=== PATIENT | female | born 1975 | race Caucasian/White ===

== ENCOUNTER → 2019-12-18 13:27 | Outpatient (CLI) | payer OTHER, SELFPAY ==
--- NOTE | ~2019-12-18 | XR_ITS ---
EXAMINATION: XR hip RT 2V w AP pelvis, XR sacroiliac joints min 3V DATE: 12/18/2019 13:57 INDICATION: Right hip and low back pain. TECHNIQUE: 1. Anteroposterior view of the pelvis and anteroposterior and frog-leg lateral views of the right hip were obtained. 2. AP and left and right oblique views of the bilateral sacroiliac joints were obtained. COMPARISON: None. FINDINGS: Bone alignment is normal. No fracture. Sacral arches are intact. Bilateral hip and sacroiliac joint s paces are relatively preserved with tiny marginal osteophytes at the inferior aspect of the sacroilia c joints and along the femoral heads consistent with minimal osteoarthritis. There are a few small ph leboliths in the pelvis. Soft tissues are unremarkable. IMPRESSION: 1. Minimal bilateral hip and sacroiliac osteoarthritis. Reviewed, dictated and finalized at location B. IMPRESSION: 1. Minimal bilateral hip and sacroiliac osteoarthritis.
== END ==
PROVIDERS: PCP Internal Medicine; Visit Provider Internal Medicine
DX: M54.5 Low back pain (principal); R91.1 Solitary pulmonary nodule; M25.551 Pain in right hip; M16.0 Bilateral primary osteoarthritis of hip
CPT/HCPCS: 72202; 73502

== ENCOUNTER 2020-01-16 16:23 | Outpatient (CLI) | payer OTHER, SELFPAY ==
--- NOTE | ~2020-01-16 | CT_ITS ---
EXAMINATION: CT chest wo con DATE: 01/16/2020 16:45 INDICATION: Lung nodule TECHNIQUE: Computed tomography (CT) of the chest was performed without intravenous contrast. Automate d exposure control and iterative reconstruction technique were employed. Exam dose: 77.38 mGy-cm tot al exam DLP. COMPARISON: None FINDINGS: Status post bilateral augmentation mammoplasty. Minimal right apical scarring. 4 mm nodule, right lower lobe (series 4 image 59). Small posterolateral peripheral linear opacity, right lower lobe (image 59). Pleural-based 4 mm opacity in the lateral left lower lobe (image 77) Peripheral linear opacity in the lateral left lung base, likely a small area of discoid atelectasis o r scarring. No pulmonary infiltrate or consolidation. Normal heart size. No pericardial or pleural effusion. No thoracic aortic aneurysm. No hilar or mediastinal mass lesion or lymphadenopathy. No adrenal mass lesion. Status post cholecystectomy. IMPRESSION: 4 mm right lower lobe pulmonary nodule and 4 mm left lower lobe pulmonary nodule. Consid er [address] thorax follow-up Reviewed, dictated and finalized at Location A. Reviewed, dictated and finalized at location A. CHECKER IMPRESSION: 4 mm right lower lobe pulmonary nodule and 4 mm left lower lobe pu lmonary nodule. Consider [address] thorax follow-up
== END 2020-01-16 16:24 | disposition home or self-care (01) ==
PROVIDERS: PCP Internal Medicine; Visit Provider Internal Medicine
DX: R91.1 Solitary pulmonary nodule (principal)
CPT/HCPCS: 71250

== ENCOUNTER → 2021-02-06 15:21 | Outpatient (CLI) | payer OTHER, SELFPAY ==
--- NOTE | ~2021-02-06 | CT_ITS ---
EXAMINATION:CT diagnostic chest wo con DATE: 02/06/2021 15:44 INDICATION: Solitary pulmonary nodule. TECHNIQUE: Computed tomography (CT) of the chest was performed without intravenous contrast. Automate d exposure control and iterative reconstruction technique were employed. The dose-length product (DLP ) was 51.78 mGy-cm. COMPARISON: Chest CT 01/16/2020 FINDINGS: There is mild scarring at the lung apices. There are stable 4 mm and 2 mm nodules in right lower lobe. There is a stable 4 mm nodule in left lower lobe. There is mild dependent atelectasis karly aterally. No pleural effusion. There is is normal. No pericardial effusion. There is mild pectus exca vatum. There are bilateral breast implants. There are changes of cholecystectomy. There is severe tho racic spondylosis. There is mild chronic anterior wedging of multiple vertebral bodies. IMPRESSION: 1. Stable small pulmonary nodules, likely benign. Reviewed, dictated and finalized at location A. 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
== END ==
PROVIDERS: PCP Internal Medicine; Visit Provider Internal Medicine
DX: R91.1 Solitary pulmonary nodule (principal); M47.814 Spondylosis without myelopathy or radiculopathy, thoracic region; Q67.6 Pectus excavatum; Z98.82 Breast implant status
CPT/HCPCS: 71250

== ENCOUNTER 2022-07-26 15:29 | Outpatient (CLI) | payer OTHER, SELFPAY ==
--- NOTE | ~2022-07-26 | XR_ITS ---
XR hip RT 2V w AP pelvis 07/26/2022 15:49 INDICATION: Right lateral hip pain PROCEDURE: AP pelvis and 2 views right hip COMPARISON: 12/18/2019 FINDINGS: Fracture, dislocation or subluxation is not identified. Pelvic rings are intact. There is m ild bilateral osteoarthritis of the hips. The soft tissues appear within normal limits. No foreign b odies are identified. IMPRESSION: 1: Mild bilateral osteoarthritis of the hips. Reviewed, dictated and finalized at location L.
--- NOTE | ~2022-07-26 | CT_ITS ---
EXAMINATION: CT diagnostic chest wo con DATE: 07/26/2022 15:48 INDICATION: Follow-up pulmonary nodules TECHNIQUE: Computed tomography (CT) of the chest was performed without intravenous contrast. The dose -length product was 71.62 mGy-cm. Automated exposure control and iterative reconstruction technique w ere employed. COMPARISON: CT dated 02/06/2021 FINDINGS: There are bilateral breast implants. No significant pleural or pericardial effusion. No tho racic lymphadenopathy. Heart size is normal. Status post cholecystectomy. No endobronchial lesions. N o pneumothorax. There are stable 4 and 2 mm right lower lobe nodules, image 55. Stable 4 mm left lowe r lobe nodule, image 85. Stable 3 mm pleural-based nodule left lower lobe, image 69. Stable 3 mm left upper lobe nodule. No new pulmonary nodules or masses. Mild thoracic spondylosis. No focal lytic or blastic lesions. No acute osseous abnormality. Mildly accentuated thoracic kyphosis. IMPRESSION: 1. Stable small bilateral pulmonary nodules, likely benign. Reviewed, dictated and finalized at location L.
== END 2022-07-26 15:30 | disposition home or self-care (01) ==
PROVIDERS: PCP Internal Medicine; Visit Provider Internal Medicine
DX: R91.8 Other nonspecific abnormal finding of lung field (principal); M16.0 Bilateral primary osteoarthritis of hip
CPT/HCPCS: 71250; 73502

== ENCOUNTER 2022-12-20 08:19 | Outpatient (CLI) | payer OTHER, SELFPAY ==
--- NOTE | 2023-01-10 15:52 | WPDHOMESLEEP ---
Sleep Study - Home Unattended Date of Study: 12/20/22 Ordering Provider: Shelley Garibay NP Interpreting Provider: Gloria Carmona, DO Home Sleep Study Type: Watch PAT Height: 1.68 m Weight: 70.307 kg Body Mass Index: 25.0 Neck Circumference (inches): 13 [place]: 4 Reason for Sleep Study Insomnia, heart palpitations Sleep History The patient is a 47-year-old female that had a sleep study ordered by her primary care for evaluation of insomnia. The patient denies awakening from sleep short of breath. She rarely awakens at night with heartburn, belching or cough. She constantly snores loudly enough that others complain. She frequently has trouble sleeping when she has a cold. She rarely wakes up gasping for air throughout the night. She rarely has breathing problems at night observed by herself or others. She rarely sweats excessively at night. She frequently has heart palpitations or irregular heartbeats during the night. She denies falling asleep during the day and while driving. She denies sleep paralysis and cataplexy. She occasionally has trouble at school or work due to sleepiness. She occasionally experiences vivid dreamlike scenes upon awakening or falling asleep. She denies feeling afraid of falling asleep. She constantly has nightmares. She constantly remembers her dreams. She constantly has thoughts racing through her mind. She constantly feels sad, depressed and anxious. She frequently has muscular tension. She frequently notices parts of her body jerk. She frequently kicks during the night. She frequently has crawling and aching feelings in her legs and frequently has leg pain during the night. She frequently grinds her teeth during sleep and frequently awakens with morning jaw pain. She is constantly bothered by pain during the day and constantly awakened by pain during the night. She constantly wakes up feeling stiff in the morning. She constantly wakes up with sore or achy muscles. She constantly wakes up with pain in the neck, spine or other joints. She goes to bed between 10-11 p.m. on weekdays and between 10:00 p.m. to 1:00 a.m. on the weekends. It can take her up to 4 hours to fall asleep on bad nights. She wakes up 4-6 times throughout the night for unknown reasons. A can take her 15 minutes up to 2 hours to fall back asleep. She wakes up between 6-7 a.m. on both weekdays and weekends. He typically gets 7-8 hours of sleep if she takes Ambien and will only get 3-4 hours of sleep if she does not. She will stay in bed for 10-15 minutes after waking up in the morning. She denies consuming any caffeinated beverages within 2 hours of bedtime. She will engage in physical exercise before bedtime. She will watch television before falling asleep. She denies taking naps in the afternoon or the evening. She consumes 3-4 cups of coffee per day. She quit smoking cigarettes 3 months ago. She denies alcohol and recreational drug PMFSH Past Medical History Medical History Abnormal finding of blood chemistry Abnormal thyroid blood test Anxiety Benign essential hypertension Bilateral hip pain BMI 23.0-23.9, adult BMI 25.0-25.9,adult BMI 27.0-27.9,adult Breast pain, right Bruising Chronic pain Depressed mood Depression DJD (degenerative joint disease) Dyslipidemia Elevated glucose Elevated homocysteine Elevated LFTs Encounter for preventive health examination Encounter for routine adult health examination with abnormal findings Encounter for routine adult health examination without abnormal findings Encounter to establish care Follow up GERD (gastroesophageal reflux disease) Hip pain, right Hypersomnia Hypertension Increased frequency of urination Insomnia Jaw pain Left sciatic nerve pain Low back pain Lung nodule Lupus Mass of soft tissue of right lower extremity Migraine with aura Migraines Mitral valve disorder Nausea and vomiting O
[2023-01-10 16:14] VITALS: BMI 25.0
== END 2022-12-21 09:59 | disposition home or self-care (01) ==
LOC: ANHCSM 08:21
PROVIDERS: PCP Nurse Practitioner Family; Visit Provider Nurse Practitioner Family
DX: G47.39 Other sleep apnea (principal); G25.81 Restless legs syndrome; G47.00 Insomnia, unspecified; R06.83 Snoring; G47.10 Hypersomnia, unspecified
CPT/HCPCS: 95800

== ENCOUNTER 2022-12-20 10:23 | Outpatient (CLI) | payer OTHER, SELFPAY ==
--- NOTE | 2022-12-20 10:52 | ECHO_ITS ---
Patient Info Name: Misty Monroe Age: 47 years : 1975 Gender: Female Ht: 65 in Wt: 155 lbs BSA: 1.81 m2 HR: 62 bpm BP: 125 / 84 mmHg Heart Rhythm: Sinus Rhythm Technical Quality: Good Exam Date: 12/20/2022 11:12 AM Exam Location: [facility] Patient Status: Outpatient Admit Date: 12/20/2022 Staff Ordering Physician: Shelley Garibay NP Class A Lineman: Sri Padilla RDCS Attending Provider: Shelley Garibay NP Exam Type: CA echo doppler color flow Study Info Indications R06.02 - Shortness of breath Complete two-dimensional, color flow and Doppler transthoracic echocardiogram is performed. Summary 1. Complete two-dimensional, color flow and Doppler transthoracic echocardiogram is performed. 2. Left ventricular chamber dimension is normal. 3. Left ventricular systolic function is normal, estimated at 60-65%. 4. The left ventricular diastolic function is grade II diastolic dysfunction. 5. E/e' 7 is not elevated. 6. No pulmonary hypertension, estimated pulmonary arterial systolic pressure is 15 mmHg. 7. There is trace pulmonic regurgitation. Left Ventricle E/e' 7 is not elevated. Left ventricular chamber dimension is normal. Left ventricular systolic function is normal, estimated at 60-65%. The left ventricular diastolic function is grade II diastolic dysfunction. Right Ventricle Right ventricular systolic function is normal and with normal TAPSE 2.2 cm. Right ventricular chamber dimension is normal. Left Atria Left atrial chamber dimension is normal. Right Atria Right atrial chamber dimension is normal. Aortic Valve The aortic valve is trileaflet. There is no aortic valve stenosis. There is no aortic valve regurgitation. Pulmonic Valve There is trace pulmonic regurgitation. Mitral Valve There is no mitral valve stenosis. There is no mitral valve regurgitation. Tricuspid Valve There is no tricuspid valve regurgitation. No pulmonary hypertension, estimated pulmonary arterial systolic pressure is 15 mmHg. Pericardium/Pleural There is no pericardial effusion. Inferior Vena Cava Normal inferior vena cava with >50% collapse upon inspiration consistent with normal right atrial pressure, 5 mmHg. Aorta The aortic root size at the sinus of Valsalva is normal. Left Ventricular Outflow Tract Name Value Normal LVOT 2D LVOT Diameter 2.0 cm LVOT Doppler LVOT Peak Gradient 4 mmHg LVOT Mean Gradient 2 mmHg LVOT VTI 20 cm LVOT VTI/AV VTI Ratio 0.9 LVOT Stroke Volume 60 ml LVOT CO 3.6 l/min LVOT CI 2.0 l/min/m2 Pulmonic Valve Name Value Normal RVOT Doppler RVOT Peak Gradient 1 mmHg PV Doppler PV Peak Gradient
--- NOTE | 2022-12-20 10:53 | ECG_ITS ---
Measurements Intervals [place] Rate: 60 P: 56 TN: 191 QRS: -9 QRSD: 94 T: 0 QT: 395 QTc: 395 Interpretive Statements SINUS RHYTHM LOW QRS VOLTAGE IN PRECORDIAL LEADS [QRS DEFLECTION < 1.0 mV IN CHEST LEADS] INCOMPLETE RIGHT BUNDLE BRANCH BLOCK [90+ ms QRS DURATION, TERMINAL R IN V1/V2, 40+ ms S IN I/aVL/V4/V5/V6] BORDERLINE ECG NO PREVIOUS ECG AVAILABLE FOR COMPARISON Electronically Signed On 12-20-2022 17:04:01 CDT by Gordon Lyon M.D.
== END 2022-12-20 10:24 | disposition home or self-care (01) ==
LOC: ANHCARD 10:23
PROVIDERS: PCP Nurse Practitioner Family; Visit Provider Nurse Practitioner Family
DX: R00.2 Palpitations (principal); I45.10 Unspecified right bundle-branch block; R93.1 Abnormal findings on diagnostic imaging of heart and coronary circulation
CPT/HCPCS: 93005; 93306; 95800

== ENCOUNTER 2023-01-10 09:59 | Outpatient (CLI) | payer OTHER, SELFPAY ==
--- NOTE | 2023-01-13 12:09 | WPDHOLTEREM ---
Holter/Event Monitor Holter/Event Monitor Date of procedure: 01/10/23 Holter/Event Procedure: 24 Hr Holter Monitor Indications: Palpitations Conclusion: 1. 24 hour holter monitor on 01/10/23. 2. Underlying rhythm is sinus rhythm. HR range 58-113 bpm; average HR 76 bpm. 3. There are 2 premature supraventricular complexes and 1 supraventricular couplet. No supraventricular tachycardia. 4. No premature ventricular complexes. No ventricular tachycardia. 5. No sinoatrial or atrioventricular blocks. No significant pauses greater than 2 seconds. 6. Patient reports symptoms of pounding heart, lightheadedness which demonstrate sinus rhythm, HR range 81-92 bpm.
== END 2023-01-10 10:00 | disposition home or self-care (01) ==
LOC: ANHCARD 10:01
PROVIDERS: PCP Nurse Practitioner Family; Visit Provider Nurse Practitioner Family
DX: R06.02 Shortness of breath (principal); R00.2 Palpitations
CPT/HCPCS: 93225; 93226

== ENCOUNTER 2023-06-07 07:24 | Outpatient (CLI) | payer OTHER, SELFPAY ==
[2023-06-14 17:52] VITALS: BMI 25.8
--- NOTE | 2023-06-14 17:52 | WPDSLEEPSTUD ---
Sleep Study Date of Study: 06/07/23 Ordering Provider: Gloria Carmona DO Interpreting Physician: Gloria Carmona DO Sleep Study Type: CPAP Titration Height: 1.68 m Weight: 72.575 kg Body Mass Index: 25.8 Neck Circumference (inches): 13.25 [place]: 6 Reason for Sleep Study The patient had a WatchPAT home sleep test on 12/20/2022 that showed an overall AHI of 7 with desaturation down to 83%. She had a central apnea index of 4.7. Sleep History The patient is a 47-year-old female that had a sleep study ordered by her primary care for evaluation of insomnia.? The patient denies awakening from sleep short of breath.? She rarely awakens at night with heartburn, belching or cough.? She constantly snores loudly enough that others complain.? She frequently has trouble sleeping when she has a cold.? She rarely wakes up gasping for air throughout the night.? She rarely has breathing problems at night observed by herself or others.? She rarely sweats excessively at night.? She frequently has heart palpitations or irregular heartbeats during the night.? She denies falling asleep during the day and while driving.? She denies sleep paralysis and cataplexy.? She occasionally has trouble at school or work due to sleepiness.? She occasionally experiences vivid dreamlike scenes upon awakening or falling asleep.? She denies feeling afraid of falling asleep.? She constantly has nightmares.? She constantly remembers her dreams.??She constantly has thoughts racing through her mind.? She constantly feels sad, depressed and anxious.? She frequently has muscular tension.? She frequently notices parts of her body jerk.? She frequently kicks during the night.? She frequently has crawling and aching feelings in her legs and frequently has leg pain during the night.? She frequently grinds her teeth during sleep and frequently awakens with morning jaw pain.? She is constantly bothered by pain during the day and constantly awakened by pain during the night.? She constantly wakes up feeling stiff in the morning.? She constantly wakes up with sore or achy muscles.? She constantly wakes up with pain in the neck, spine or other joints.? She goes to bed between 10-11 p.m. on weekdays and between 10:00 p.m. to 1:00 a.m. on the weekends.? It can take her up to 4 hours to fall asleep on bad nights.? She wakes up 4-6 times throughout the night for unknown reasons.? A can take her 15 minutes up to 2 hours to fall back asleep.? She wakes up between 6-7 a.m. on both weekdays and weekends.? He typically gets 7-8 hours of sleep if she takes Ambien and will only get 3-4 hours of sleep if she does not.? She will stay in bed for 10-15 minutes after waking up in the morning.? She denies consuming any caffeinated beverages within 2 hours of bedtime.? She will engage in physical exercise before bedtime.? She will watch television before falling asleep.? She denies taking naps in the afternoon or the evening.? She consumes 3-4 cups of coffee per day.? She quit smoking cigarettes 3 months ago.? She denies alcohol and recreational drug use. [facility] Past Medical History Medical History Abnormal finding of blood chemistry Abnormal thyroid blood test Acute sinusitis Anemia Anxiety Benign essential hypertension Bilateral hip pain BMI 23.0-23.9, adult BMI 25.0-25.9,adult BMI 26.0-26.9,adult BMI 27.0-27.9,adult Breast pain, right Bruising Chronic pain Depressed mood Depression DJD (degenerative joint disease) Dyslipidemia Elevated glucose Elevated homocysteine Elevated LFTs Encounter for preventive health examination Encounter for routine adult health examination with abnormal findings Encounter for routine adult health examination without abnormal findings Encounter to establish care Follow up GERD (gastroesophageal reflux disease) Hip pain, right Hypersomnia Hypertension Increased frequency of urination Insomnia Jaw pain Left sciatic
== END 2023-06-08 07:11 | disposition home or self-care (01) ==
PROVIDERS: PCP Nurse Practitioner Family; Visit Provider Family Medicine
DX: G47.31 Primary central sleep apnea (principal); F39 Unspecified mood [affective] disorder
CPT/HCPCS: 95811

== ENCOUNTER 2023-08-15 13:04 | Outpatient (CLI) | payer OTHER, SELFPAY ==
--- NOTE | ~2023-08-15 | XR_ITS ---
EXAMINATION: XR fl inj hip RT for MR/CT DATE: 08/15/2023 14:01 INDICATION: Right hip pain TECHNIQUE: A time-out was performed to verify the patient's name, date of , and procedure to b e performed. The procedure including the risks, benefits, and alternatives was discussed with the pat ient. Risks discussed included bleeding and infection. The patient understood the risks and agreed to proceed. The skin overlying the right hip joint was prepped and draped in usual sterile fashion. A nesthetic was administered with 1% lidocaine subcutaneously. A 22 G needle was advanced under fluoro scopic guidance into the joint. Injection of 1 mL of Omnipaque 240 confirmed intra-articular positio n of the needle. Subsequently, injectate consisting of 12 mL of 2:1:1 mixture of sterile saline:Omni paque 240:1% lidocaine mixed 200:1 with 529 mg/mL Multihance gadolinium contrast was instilled. Wash out of contrast was seen confirming intra-articular administration. The needle was removed and the en try site was cleaned and dressed. There were no immediate complications. Fluoroscopy exposure time w as 0.3 minutes. The total number of images was 6. FINDINGS: Real-time fluoroscopy demonstrates the needle and contrast in the right hip joint. IMPRESSION: 1. Successful right hip joint injection of dilute gadolinium contrast mixture for subsequent MRI arth rogram which will be dictated separately. Reviewed, dictated and finalized at location A. IMPRESSION: 1. Successful right hip joint injection of dilute gadolinium contrast mixture f or subsequent MRI arthrogram which will be dictated separately.
--- NOTE | ~2023-08-15 | MR_ITS ---
EXAMINATION: MR hip RT w con DATE: 08/15/2023 14:37 INDICATION: Right hip pain TECHNIQUE: Magnetic resonance (MR) arthrogram of the right hip was performed following intra-articula r gadolinium contrast injection and without intravenous contrast. Details of the hip joint injection have been dictated separately. Sequences included small field of view of the right hip with axial and sagittal T1-weighted FS SE and T2-weighted FS FSE and coronal T1-weighted SE and T2-weighted FS FSE . Additional T1-weighted FGRE images in a radial pattern oriented orthogonal to the acetabular rim we re obtained for evaluation of the labrum. COMPARISON: None. FINDINGS: Bones/labrum/cartilage: Mild thoracolumbar levocurvature. Alignment is otherwise normal. No fracture or avascular necrosis. Slightly heterogeneous pattern of red and yellow marrow in the visualized bones. No pathologic marrow replacing process. Shallow contrast filled cleft consistent with their at the right superolateral ch ondral labral junction . There is more amorphous increased signal at the anterosuperior right acetabu lar labrum consistent with degenerative tearing. Mild to moderate nonuniform partial-thickness carti arabella loss at the right hip most prominent posteriorly where it involves both the acetabular and femor al sides of the joint space with relatively smooth chondral surface. There is additional deep chondra l ulceration along the posterior superomedial aspect of the femoral head with associated mild cortica l irregularity. Mild subarticular cystic change at the posterior medial aspect of the right acetabulu m. Less severe mild osteoarthritis suggested at the contralateral left hip on the larger [id number] w images. Fluid: No loose osteochondral bodies identified in the contrast opacified right hip joint space. Minimal lef t hip joint effusion. No bursitis or other abnormal fluid collections. Soft tissues: Normal and symmetric muscle bulk and signal in the pelvis and visualized proximal thighs. The bilater al iliopsoas, gluteal and proximal hamstring tendons are normal. The uterus is not identified and has likely been surgically resected. A segment of nonobstructed bowel extends into a small widemouthed u mbilical hernia. Limited evaluation of visceral organs of the pelvis is otherwise unremarkable. No pa thologically enlarged pelvic/inguinal lymphadenopathy. IMPRESSION: 1. Mild to moderate left hip osteoarthritis with small regions of high-grade chondromalacia at both t he femoral head and acetabulum at the posterior superomedial aspect of the joint space. 2. 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 Reviewed, dictated and finalized at location A. IMPRESSION: 1. Mild to moderate left hip osteoarthritis with small regions of high-grade ch ondromalacia at both the femoral head and acetabulum at the posterior superomed ial aspect of the joint space. 2. 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
== END 2023-08-15 13:05 ==
PROVIDERS: PCP Nurse Practitioner Family; Visit Provider Orthopaedic Surgery
DX: M25.551 Pain in right hip (principal); M16.12 Unilateral primary osteoarthritis, left hip
CPT/HCPCS: 20610; 73722; 77002; A9577; Q9967

== ENCOUNTER 2024-01-13 00:53 | Day surgery (SDC) | payer OTHER, SELFPAY ==
[2024-01-04 13:40] VITALS: BMI 27.6
--- NOTE | 2024-01-13 13:14 | P.PNAN_ITS ---
Anes - Initial Pre Proc Eval Procedure: Operation Date: 01/13/24 14:30 Proposed Procedures p Colonoscopy - Mahin Kurtz MD Date/Time: 01/13/24 13:14 Surgeon: Mahin Kurtz MD Pre Op Diagnosis: other fecal abnormalities Patient Data Age: 48 Gender: F Height: 1.68 m Weight: 77.5 kg Allergies Allergy/AdvReac Type Severity Reaction Status Date / Time No Known Allergies Allergy Verified 01/13/24 13:17 Home Medications Medication Instructions Recorded Confirmed Type glucosamine-chondroitin 250 mg-200 2 tablet PO TID 04/29/20 01/13/24 History mg tablet (Osteo Bi-Flex) xhijskwg-apc-corlm acid 0.4 1 tablet PO DAILY 04/29/20 01/13/24 History mg-lycopene 300 mcg-lutein 250 mcg tablet (Centrum Silver) adalimumab 40 mg/0.8 mL See Rx Instructions subcut .COMPLEX 11/23/22 01/13/24 History subcutaneous syringe kit (Humira) oxycodone-acetaminophen 7.5 mg-325 1 tablet PO Q6H PRN Pain 11/23/22 01/13/24 History mg tablet lisinopril 10 mg tablet See Rx Instructions .Route 02/22/23 01/13/24 Rx .COMPLEX #90 tabs bupropion HCl 300 mg 24 hr tablet, 300 mg PO QAM #30 tabs 04/01/23 01/13/24 Rx extended release rizatriptan 10 mg tablet See Rx Instructions PO .COMPLEX 05/17/23 01/13/24 Rx #12 tabs CPAP Equipment #1 ea 06/15/23 01/13/24 Rx alprazolam 0.25 mg tablet 0.125 - 0.25 mg PO TID PRN anxiety 11/03/23 01/13/24 Rx #90 tabs montelukast 10 mg tablet 10 mg PO QHS #30 tabs 11/21/23 01/13/24 Rx (Singulair) escitalopram oxalate 10 mg tablet 10 mg PO DAILY #30 tabs 11/28/23 01/13/24 Rx (Lexapro) CPAP Mask #1 ea 12/07/23 01/13/24 Rx pramipexole 0.125 mg tablet 0.125 mg PO .COMPLEX #120 tabs 12/07/23 01/13/24 Rx metoprolol succinate 50 mg See Rx Instructions .Route 12/21/23 01/13/24 Rx tablet,extended release 24 hr .COMPLEX #90 tabs zolpidem 12.5 mg tablet,extended 12.5 mg PO QHS PRN insomnia #30 12/23/23 01/13/24 Rx release,multiphase tabs Patient hx anesthesia problems: none Family hx anesthesia problems: none Results Review: All pre-operative results and documents have been reviewed as part of the pre- operative evaluation. [facility] Past Medical History Medical History (Updated 12/16/23 @ 14:36 by Joe Escobar MD) Abnormal finding of blood chemistry Abnormal thyroid blood test Acute sinusitis Anemia Anxiety Benign essential hypertension Bilateral hip pain BMI 23.0-23.9, adult BMI 25.0-25.9,adult BMI 26.0-26.9,adult BMI 27.0-27.9,adult Breast pain, right Bruising Chronic pain Depressed mood Depression DJD (degenerative joint disease) Dyslipidemia Elevated glucose Elevated homocysteine Elevated LFTs Encounter for preventive health examination Encounter for routine adult health examination with abnormal findings Encounter for routine adult health examination without abnormal findings Encounter to establish care Follow up GERD (gastroesophageal reflux disease) Hip pain, right Hypersomnia Hypertension Increased frequency of urination Insomnia Jaw pain Left sciatic nerve pain Low back pain Lump of right breast Lung nodule Lupus Mass of soft tissue of right lower extremity Migraine with aura Migraines Mitral valve disorder Nausea and vomiting 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 Referral for colonoscopy. Seasonal allergies Shortness of breath with episodes of palpitations Snoring Tobacco abuse Vitamin D deficiency Surgical History Surgical History S/P cholecystectomy S/p nephrectomy Family History Family History Mother Family history of lupus erythematosus Social History Social History Smoking packs per day: 0.25 Smoking cigarettes per day: 5.0 Years smoked: 25 Smoking pack-years: 6.25 Smoking status: Former smoker Tobacco type: cigarettes and e-cigarettes/vaping Second hand tobacco smoke exposure: Yes Alcohol intake: current Alcohol use details: Socially Substance use: never Substance use type: does not use Do You Feel Safe in your Home?: Yes Lack of Transportation: No Lack of Food: Never True Current Housing: I Have Housing Concerned About Future Housing: No Difficulty Paying Gas/Electric Bills: No Difficulty Paying for Meds: No Currently Unemployed: No Education: Trade/Vocational Certificate Difficulty w/ Childcare or Family Care: No Living arrangements: with family Additional living arrangements comments: with sp Occupation/Education: occupation Gender identity (if verbalized by the patient): Female Anes - Mica Final PreProcedure Day of Procedure 01/13/24 13:14 Patient weight: overweight Heart: regular rate and rhythm Lungs: clear to auscultation Airway: Mallampati scale class II Neurological: alert and oriented Last oral intake: >/= 8 hours ASA classification: III Emergent: no Anesthetic plan: proceed Anesthesia type and monitoring: general GIVS and standard monitoring Results Review: All pre-operative results and documents have been reviewed as part of the pre- operative evaluation. Informed Consent: The patient's anesthetic plan and its attendant risks and benefits were discussed with the patient/family/POA. Questions were solicited and answers provided to the satisfaction of the patient/family/POA.
[2024-01-13 13:19] VITALS: BP 114/78; PULSE 87; RESP 18; TEMP 36.1; O2SAT 96
[2024-01-13] MEDS: LACTATED RINGERS 1,000 ML 150 ML IV CONT (13:29)
--- NOTE | 2024-01-13 13:54 | PM.HPGS ---
History of Present Illness History of Present Illness Consent: Risks, benefits, and alternatives have been discussed and questions answered. Patient agrees to proceed with procedure. Chief complaint: other fecal abnormalities Narrative: Misty Monroe is a 48 year old female here for + cologuard, last colonoscopy 2011 Review of Systems Review of Systems: All systems reviewed & are unremarkable except as noted in HPI and below PMFSH Past Medical History Medical History (Updated 12/16/23 @ 14:36 by Joe Escobar MD) Abnormal finding of blood chemistry Abnormal thyroid blood test Acute sinusitis Anemia Anxiety Benign essential hypertension Bilateral hip pain BMI 23.0-23.9, adult BMI 25.0-25.9,adult BMI 26.0-26.9,adult BMI 27.0-27.9,adult Breast pain, right Bruising Chronic pain Depressed mood Depression DJD (degenerative joint disease) Dyslipidemia Elevated glucose Elevated homocysteine Elevated LFTs Encounter for preventive health examination Encounter for routine adult health examination with abnormal findings Encounter for routine adult health examination without abnormal findings Encounter to establish care Follow up GERD (gastroesophageal reflux disease) Hip pain, right Hypersomnia Hypertension Increased frequency of urination Insomnia Jaw pain Left sciatic nerve pain Low back pain Lump of right breast Lung nodule Lupus Mass of soft tissue of right lower extremity Migraine with aura Migraines Mitral valve disorder Nausea and vomiting 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 Referral for colonoscopy. Seasonal allergies Shortness of breath with episodes of palpitations Snoring Tobacco abuse Vitamin D deficiency Surgical History Surgical History S/P cholecystectomy S/p nephrectomy Family History Family History Mother Family history of lupus erythematosus Social History Social History Smoking packs per day: 0.25 Smoking cigarettes per day: 5.0 Years smoked: 25 Smoking pack-years: 6.25 Smoking status: Former smoker Tobacco type: cigarettes and e-cigarettes/vaping Second hand tobacco smoke exposure: Yes Alcohol intake: current Alcohol use details: Socially Substance use: never Substance use type: does not use Do You Feel Safe in your Home?: Yes Lack of Transportation: No Lack of Food: Never True Current Housing: I Have Housing Concerned About Future Housing: No Difficulty Paying Gas/Electric Bills: No Difficulty Paying for Meds: No Currently Unemployed: No Education: Trade/Vocational Certificate Difficulty w/ Childcare or Family Care: No Living arrangements: with family Additional living arrangements comments: with sp Occupation/Education: occupation Gender identity (if verbalized by the patient): Female Meds Home Medications and Allergies Home Medications Medication Instructions Recorded Confirmed Type glucosamine-chondroitin 250 mg-200 2 tablet PO TID 04/29/20 01/13/24 History mg tablet (Osteo Bi-Flex) bdttdbev-mjp-ojczx acid 0.4 1 tablet PO DAILY 04/29/20 01/13/24 History mg-lycopene 300 mcg-lutein 250 mcg tablet (Centrum Silver) adalimumab 40 mg/0.8 mL See Rx Instructions subcut .COMPLEX 11/23/22 01/13/24 History subcutaneous syringe kit (Humira) oxycodone-acetaminophen 7.5 mg-325 1 tablet PO Q6H PRN Pain 11/23/22 01/13/24 History mg tablet lisinopril 10 mg tablet See Rx Instructions .Route 02/22/23 01/13/24 Rx .COMPLEX #90 tabs bupropion HCl 300 mg 24 hr tablet, 300 mg PO QAM #30 tabs 04/01/23 01/13/24 Rx extended release rizatriptan 10 mg tablet See Rx Instructions PO .COMPLEX 05/17/23 01/13/24 Rx #12 tabs CPAP Equipment #1 ea 06/15/23 01/13/24 Rx alprazolam 0.25 mg tablet 0.125 - 0.25 mg PO TID PRN anxiety 11/03/23 01/13/24 Rx #90 tabs montelukast 10 mg tablet 10 mg PO QHS #30 tabs 11/21/23 01/13/24 Rx (Singulair) escitalopram oxalate 10 mg tablet 10 mg PO DAILY #30 tabs 11/28/23 01/13/24 Rx (Lexapro) CPAP Mask #1 ea 12/07/23 01/13/24 Rx pramipexole 0.125 mg tablet 0.125 mg PO .COMPLEX #120 tabs 12/07/23 01/13/24 Rx metoprolol succinate 50 mg See Rx Instructions .Route 12/21/23 01/13/24 Rx tablet,extended release 24 hr .COMPLEX #90 tabs zolpidem 12.5 mg tablet,extended 12.5 mg PO QHS PRN insomnia #30 12/23/23 01/13/24 Rx release,multiphase tabs Allergies Allergy/AdvReac Type Severity Reaction Status Date / Time No Known Allergies Allergy Verified 01/13/24 13:17 Vital Signs Vital Signs - 24 hr 01/13/24 13:19 Temperature 97.0 F L Pulse Rate 87 Respiratory Rate 18 Blood Pressure 114/78 Pulse Oximetry 96 Oxygen Delivery Room Air Exam Const: General: comfortable and no acute distress HENMT: Face/Nose/Sinus: Normal nares present Eyes: General: appearance normal, both eyes and all related structures Neck: Neck: no JVD Resp: Auscultation: clear to auscultation bilaterally Cardio: Rate: regular rate Rhythm: regular rhythm GI: Inspection: non-distended GI Palp: Yes Soft to palpation Skin: General skin exam: normal color Neuro: General: gait normal Speech: normal speech Extrem: General: normal to inspection Psych: Mental Status: mental status grossly normal Assessment and Plan Assessment and plan (1) Positive colorectal cancer screening using Cologuard test: Onset Date: 12/09/23 Code(s): R19.5 - Other fecal abnormalities Status: Acute Assessment and Plan: colonoscopy
[2024-01-13 14:18] VITALS: BP 93/58; PULSE 79; RESP 22; O2SAT 100
[2024-01-13 14:28] VITALS: BP 98/65; PULSE 81; RESP 25; O2SAT 100
[2024-01-13 14:38] VITALS: BP 106/73; PULSE 67; RESP 19; O2SAT 100
== END 2024-01-13 14:54 | disposition home or self-care (01) ==
PROVIDERS: PCP Nurse Practitioner Family; Referring Provider Family Medicine; Visit Provider Internal Medicine Gastroenterology
PROC: 0DJD8ZZ Inspection of Lower Intestinal Tract, Via Natural or Artificial Opening Endoscopic (ICD-10-PCS; CPT 45378; principal; 2024-01-13 14:30)
DX: R19.5 Other fecal abnormalities (principal); K64.8 Other hemorrhoids; I10 Essential (primary) hypertension; E78.5 Hyperlipidemia, unspecified; F41.9 Anxiety disorder, unspecified; F32.A Depression, unspecified; K21.9 Gastro-esophageal reflux disease without esophagitis; Z87.891 Personal history of nicotine dependence; Z79.620 Long term (current) use of immunosuppressive biologic
CPT/HCPCS: 45378; J2704; J7120

== ENCOUNTER 2024-05-23 16:17 | Outpatient (CLI) | payer OTHER, SELFPAY ==
--- NOTE | ~2024-05-23 | XR_ITS ---
HISTORY: radiculopathy COMPARISON: None TECHNIQUE: 3 views of the thoracic spine were performed FINDINGS: No acute compression fracture is present. Bone mineralization is age-appropriate. No significant degenerative disease. IMPRESSION: Unremarkable radiographic evaluation of the thoracic spine, as detailed above. Reviewed, dictated and finalized at location A.
--- NOTE | ~2024-05-23 | XR_ITS ---
HISTORY: radiculopathy COMPARISON: None. TECHNIQUE: 2 view lumbar spine. FINDINGS: Lumbar vertebral bodies are normally aligned. There are 5 non-rib bearing lumbar vertebral bodies. There are no lytic or sclerotic lesions. Paraspinal soft tissues are unremarkable. Degenerative disease is identified at the level of T11/T12 and T12/L1 with osteophyte formation and d isc space narrowing. Remaining disc spaces and vertebral body heights are otherwise well maintained within the lumbar spin e. IMPRESSION: Degenerative disease, without acute fracture. If patient is clinically able, follow-up with a noncontrast enhanced MRI is recommended for more deta iled evaluation. Reviewed, dictated and finalized at location A. IMPRESSION: Degenerative disease, without acute fracture. If patient is clinically able, follow-up with a noncontrast enhanced MRI is rec ommended for more detailed evaluation.
--- OUTSIDE RECORDS SUMMARY | 2024-05-23 17:15 | XMS_ITS | Clinical Summary ---
Author Organization [facility] Address [address] [place] [address] Care Team Providers Care Weather Analyst Name Role Phone Shelley Garibay NP Primary Care Provider [phone] Allergies No known active allergies Medications lisinopril (PRINIVIL,ZESTRI L) 10 mg tablet Take 1 tablet (10 mg total) by mouth daily Active metoprolol XL (TOPROL-XL) 50 mg 24 hr tablet Take 1 tablet (50 mg total) by mouth daily Active estradiol (ESTRACE) 2 mg tablet Take 1 tablet (2 mg total) by mouth daily Active multivitamin tabletIndication s:Vitamin Deficiency Prevention Take 1 tablet by mouth daily. Active cyanocobalamin (Vitamin B-12) 1,000 mcg tabletIndication s:Prevention of Vitamin B12 Deficiency Take 1 tablet (1,000 mcg total) by mouth daily Active oxyCODONE-acetam inophen (PERCOCET) 7.5-325 mg per tabletIndication s:Pain Take 1 tablet by mouth every 4 (four) hours as needed Active folic acid (FOLVITE) 1 mg tablet Take 1 mg by mouth daily Active escitalopram (LEXAPRO) 10 mg tablet Take 1 tablet (10 mg total) by mouth daily 05/20/2023 Active buPROPion XL (WELLBUTRIN XL) 300 mg 24 hr tablet 06/12/2023 Active ALPRAZolam (XANAX) 0.25 mg tablet Take 1 tablet (0.25 mg total) by mouth daily as needed 04/17/2021 Active lidocaine (LIDODERM) 5 % 05/11/2023 Acti ve rizatriptan (MAXALT) 10 mg tablet 05/17/2023 Active Humira,CF, Pen 40 mg/0.4 mL pen injector kit 06/08/2023 Active zolpidem CR (AMBIEN CR) 12.5 mg CR tablet 07/06/2023 Active Active Problems Problem Noted Date Diagnosed Date Tobacco abuse 01/02/2018 Depression 01/02/2018 Hypertension 11/08/2012 Mitral valve prolapse 05/13/2006 Overview (06/11/2016): MVP Resolved Problems Problem Noted Date Diagnosed Date Resolved Date Hematemesis 09/06/2018 09/07/2018 Hematemesis with nausea 09/06/201806/2018 Overview (09/06/2018): Added automatically from request for surgery [id number] Other dysphagia 09/06/2018 09/07/2018 Hyponatremia 09/06/2018 09/07/2018 Migraines 01/02/2018 09/07/2018 Calculus of gallbladder with out cholecystitis without obstruction 12/29/2017 02/06/2018 Overview (12/29/2017): Added automatically from request for surgery [id number] Chronic pain 11/11/2012 01/02/2018 Thoracic neuritis 11/11/2012 01/02/2018 Costochondritis 11/11/2012 01/02/2018 Mitral valve disease 11/08/2012 018 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 Migraine 05/13/2006 01/02/2018 Overview (06/11/2016): MIGRNE UNSP WO NTRC MGRN Encounters Date Type Department Care Team Description 03/26/2024 1:48 PM DIRECTOR OF VITAL STATISTICS - 03/26/2024 11:59 PM DIRECTOR OF VITAL STATISTICS Hospital Encounter [facility] [address] [place] [id number] Right hip pain Discharge Disposition: Discharge to home or self care 02/27/2024 Orders Only [facility] [address] [place] [phone] Arturo Powers MD Right hip pain (Primary Dx) 02/27/2024 Telephone [facility] [address] [place] [address] [place] [phone] Arturo Powers MD injection from Last 3 Months Immunizations Immunization Administration Dates Next Due Influenza, Quadrivalent, Spl it, Preservative Free, Intramuscular 01/05/2018 Tdap 05/09/2008 Surgical History Surgery Date Site/Laterality Comments AUGMENTATION MAMMOPLASTY 03/07/2003 - 03/06/2004 breast augmentation TUBAL LIGATION 03/07/2002 - 03/06/2003 BTL OTHER SURGICAL HISTORY Headaches: family hx of aneurism, neg MRI IR FINE NEEDLE ASPIRATION W IMAGE GUIDANCE 03/04/2016 N/A OOPHORECTOMY Bilateral Right 2006, left 2008 LAPAROSCOPIC VAGINAL HYSTERECTOMY 03/07/2009 - 03/06/2010 KIDNEY SURGERY 03/07/2011 - 03/06/2012 Right Nephropexy ABDOMINAL SURGERY NEPHRECTOMY 01/05/2022 - 02/03/2022 FLUORO GUIDED INJECTION HIP RIGHT 09/20/2023 Right FLUORO GUIDED INJECTION HIP RIGHT 12/22/2023 Right FLUORO GUIDED INJECTION HIP RIGHT 03/26/2024 Right Medical History Medical History Date Comments Headache Headaches Endometritis endometriosis Vaginal delivery X3 (1 twin deli very and 1 singlet) Migraine SLE (systemic lupus erythematosus) (HCC) Rheumatoid arthritis (HCC) Hypertension Erosive (osteo)arthritis 2021 Bilater al hip Family History Medical History Relation Name Comments Hypertension Brother Diabetes Child In her twins Hypertension Daughter Anuerysm Father Aneurysm; Anuerysm Maternal Grandfather Aneurys m; Melanoma Maternal Grandfather Breast cancer Maternal Grandmother Cervical cancer Maternal Grandmother Stroke Maternal Grandmother Breast cancer Mother Heart attack Mother Lupus Mother Other Mother MVP; /SVT; /SLE , osteoporosis; Rheum arthritis Mother Cholelithiasis Neg Hx Relation Name Status Comments Brother Child Daughter Father Maternal Grandfather Maternal Grandmother Alive Mother Social History Tobacco Use Types Packs/Day Years Used Date Smoking Tobacco: Former Cigarettes Q uit: 09/2022 Smokeless Tobacco: Never Tobacco Cessation:Counseling Given: Not Answered Comments:One pack per week Alcohol Use Standard Drinks/Week Comments No 0 (1 standard drink = 0.6 oz pur e alcohol) AUDIT-C Answer Date Recorded Frequency of Alcohol Consumption Not on file 06/22/2023 Average Number of Drinks Not on file 024 Q3: How often do you have si x or more drinks on one occasion? 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 Not on file Not on file Not on file Obstetrics History Last Filed Vital Signs Vital Sign Reading Time Taken Comments Blood Pressure 132/90 06/22/2023 1:20 PM CDT Pulse 78 09/07/2018 4:30 AM CDT Temperature 36.8 C (98.2 F) 09/07/2018 4:30 AM CDT Respiratory Rate 18 09/07/2018 4:30 AM CDT Oxygen Saturation 97% 09/07/2018 4:30 AM CDT Inhaled Oxygen Concentration - - Weight 72.6 kg (160 lb) 10/19/2023 8:20 AM CDT Height 167.6 cm (5' 6 ) 10/19/2023 8:20 AM CDT Body Mass Index 25.82 10/19/2023 8:20 AM CDT Plan of Treatment Health Maintenance Due Date Last Done Comments Colon Cancer Screening-Colonoscopy 1973 Depression Screening 1973 Hepatitis C Screening 1973 Hepatitis B Screening 09/27/1991 Regular Well Visit/Exam 18-64 09/27/1991 DTaP/Tdap/Td Vaccine (2 - Td or Tdap) 05/09/2018 05/09/2008 Zoster Vaccine (1 of 2) 09/27/2023 Influenza Vaccine (#1) 2023 2, 10/28/2019, 01/05/2018, Additional history exists Breast Cancer Screening-Mammogram 09/27/2024 09/28/2023, 07/14/2020, 03/24/2018, Additional history exists Pneumococcal vaccine <65 Aged Out No longer eligible based on patient's age to complete this topic Procedures Procedure Name Priority Date/Time Associated Diagnosis Comments FLUORO GUIDED INJECTION HIP RIGHT Schedule Routine, Read Routine (OP Routine) 03/26/2024 2:28 PM DIRECTOR OF VITAL STATISTICS Right hip pain DIAGNOSTIC MAMMOGRAM BILATERAL W MARIANA W IMPLANTS Schedule Routine, Read Routine (OP Routine) 09/28/2023 10:40 AM CDT Mass of right breast, unspecified quadrant Mastodynia from Last 3 Months or Most Recently Relevant to Health Maintenance Results * FL Fluoro Guided Injection Hip Right (03/26/2024 2:28 PM DIRECTOR OF VITAL STATISTICS) Anatomical Region Laterality Modality Hip Right Computed Radiogr aphy, Computed Radiography 03/26/2024 2:40 PM DIRECTOR OF VITAL STATISTICS Narrative 03/26/2024 2:41 PM DIRECTOR OF VITAL STATISTICS EXAM DESCRIPTION: FL FLUORO GUIDED INJECTION HIP RIGHT REASON FOR STUDY: RIGHT HIP PAIN Hip pain. COMPARISON: 09/20/2023, 12/22/2023 RADIATION DOSE: Dose: 0.9 mGy Reference Air Kerma (Ka,r) TECHNIQUE/FINDINGS: Risk, benefits, and alternatives of the procedure were explained to the patient and informed consent was obtained. Questions answered. The correct hip was marked and a time-out was performed. The area was prepped and draped in the usual sterile fashion. Utilizing fluoroscopic guidance, a 22-gauge spinal needle was directed into the hip joint space and a small amount of water-soluble non-ionic contrast was injected to confirm intra-articular placement. 1 mL of 40 mg/mL triamcinolone acetonide and 2 mL of 0.25% bupivacaine were injected without complication. No immediate complications. IMPRESSION: Successful right hip steroid injection. THIS IS AN ELECTRONICALLY VERIFIED FINAL REPORT 03/26/2024 2:41 PM - Electronically signed by David Olguin M.D. NS: NS Report ID: [id number] Reading Location: [id number] Procedure Note David Olguin MD - 03/26/2024 EXAM DESCRIPTION: FL FLUORO GUIDED INJECTION HIP RIGHT REASON FOR STUDY: RIGHT HIP PAIN Hip pain. COMPARISON: 09/20/2023, 12/22/2023 RADIATION DOSE: Dose: 0.9 mGy Reference Air Kerma (Ka,r) TECHNIQUE/FINDINGS: Risk, benefits, and alternatives of the procedure were explained to the patient and informed consent was obtained. Questions answered. The correct hip was marked and a time-out was performed. The area was prepped and draped in the usual sterile fashion. Utilizing fluoroscopic guidance, a 22-gauge spinal needle was directed into thehip joint space and a small amount of water-soluble non-ionic contrast was injected to confirm intra-articular placement. 1 mL of 40 mg/mL triamcinolone acetonide and 2 mL of 0.25% bupivacaine were injectedwithout complication. No immediate complications. IMPRESSION: Successful right hip steroid injection. THIS IS AN ELECTRONICALLY VERIFIED FINAL REPORT 03/26/2024 2:41 PM - Electronically signed by David Olguin M.D. NS: NS Report ID: [id number] Reading Location: [place] [address] Arturo Powers MD IMG FLUOROSCOPY PROCEDU RES Final Result * Diagnostic Mammogram Bilateral W Mariana W Implants (09/28/2023 10:40 AM CDT) Anatomical Region Laterality Modality Breast Bilateral Mammography 09/28/2023 11:1 5 AM CDT Impressions 09/28/2023 11:15 AM CDT BI-RADS code one-negative Electronically signed by: Susan Garrido M.D. Narrative 09/28/2023 11:15 AM CDT EXAM: Bone with 3-D tomosynthesis diagnostic mammogram, limited right breast ultrasound HISTORY: Pain and lump in the right breast upper outer quadrant COMPARISON: Bilateral mammogram 07/14/2020 and prior FINDINGS: Bilateral full 2-D implant views and bilateral 3-D implant displacement views were performed with limited right breast ultrasound. There are bilateral subpectoral silicone implants which are intact. There is scattered fibroglandular breast tissue. There is no mass, distortion or suspicious calcification in either breast. Sonography of the palpable area at the 11 to 12 o'clock position right breast at 5 and 6 cm from the nipple shows normal breast tissue. There is no suspicious cystic or solid mass. Clinical follow-up for nodule in the right breast is recommended. Unless a new clinical problem arises, annual screening mammography is recommended. These results were conveyed to the patient at the time of the study. Shelley Garibay NP IMG MAMMO PROCEDURES Final Resu lt from Last 3 Months or Most Recently Relevant to Health Maintenance [employer] OPEN ACCESS [employer] OPEN ACCESS [employer] OPEN ACCESS [employer] OPEN ACCESS Advance Directives For more information, please contact: [phone] * Full Code (Latest Code Status on File) Date Activated Date Inactivated Comments 09/06/2018 1:32 PM 09/07/2018 4:32 PM * Full Code Date Activated Date Inactivated Comments 01/04/2018 2:58 PM 01/05/2018 2:32 PM Care Teams Weather Analyst Relationship Specialty Start Date End Date Shelley Garibay NP [address] [address] PCP - General Family Medicine 07/27/23
--- OUTSIDE RECORDS SUMMARY | 2024-05-23 17:15 | XMS_ITS | Referral Summary ---
Author Organization [facility] Address [address] [place] [address] Care Team Providers Care Buggy Driver Name Role Phone Shelley Garibay NP Primary Care Provider [phone] Encounters Date Type Department Care Team Description 03/26/2024 1:48 PM PHYSICIAN CHIEF OF PATHOLOGY - 03/26/2024 11:59 PM PHYSICIAN CHIEF OF PATHOLOGY Hospital Encounter [facility] Diagnostic [facility] [place] [address] Right hip pain Discharge Disposition: Discharge to home or self care 02/27/2024 Orders Only [facility] Medical [facility] Orthopedics and Sports Medicine [address] [place] [address] [address] [place] [address] Arturo Powers MD Right hip pain (Primary Dx) 02/27/2024 Telephone [facility] Orthopedics and Sports Medicine [address] [place] [address] [address] [place] [address] Arturo Powers MD injection from Last 3 Months Allergies No known active allergies Medications lisinopril [...] Date Hematemesis 09/06/2018 09/07/2018 Hematemesis with nausea 09/06/2018 0706/2018 Overview (09/06/2018): Added automatically from request for surgery [id number] Other dysphagia 09/06/2018 09/07/2018 Hyponatremia 09/06/2018 09/07/2018 Migraines 01/02/2018 09/07/2018 Calculus of gallbladder with out cholecystitis without obstruction 12/29/2017 02/06/2018 Overview (12/29/2017): Added automatically from request for surgery [id number] Chronic pain 11/11/2012 01/02/2018 Thoracic neuritis 11/11/2012 01/02/2018 Costochondritis 11/11/2012 01/02/2018 Mitral valve disease 11/08/2012 018 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 Migraine 05/13/2006 01/02/2018 Overview (06/11/2016): MIGRNE UNSP WO NTRC MGRN Immunizations Immunization Administration Dates Next Due Influenza, Quadrivalent, Spl it, Preservative Free, Intramuscular 01/05/2018 Tdap 05/09/2008 Social History Tobacco Use Types Packs/Day Years [...] on file Legal Sex Female 11:24 PM PHYSICIAN CHIEF OF PATHOLOGY Gender Identity Not on file Sexual Orientation Not on file 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 Not on file Not on file Not on file Last Filed Vital Signs Vital Sign Reading [...] 10/19/2023 8:20 AM CDT Plan of Treatment Not on file Procedures Procedure Name Priority Date/Time Associated Diagnosis Comments FLUORO GUIDED INJECTION HIP RIGHT Schedule Routine, Read Routine (OP Routine) 03/26/2024 2:28 PM PHYSICIAN CHIEF OF PATHOLOGY Right hip pain DIAGNOSTIC MAMMOGRAM BILATERAL W MARIANA W IMPLANTS Schedule Routine, Read Routine (OP Routine) 09/28/2023 10:40 AM CDT Mass of right breast, unspecified quadrant Mastodynia from Last 3 Months or Most Recently Relevant to Health Maintenance Results * FL Fluoro Guided Injection Hip Right (03/26/2024 2:28 PM PHYSICIAN CHIEF OF PATHOLOGY) Anatomical Region Laterality Modality Hip Right Computed Radiogr aphy, Computed Radiography 03/26/2024 2:40 PM PHYSICIAN CHIEF OF PATHOLOGY Narrative 03/26/2024 2:41 PM PHYSICIAN CHIEF OF PATHOLOGY EXAM DESCRIPTION: FL FLUORO GUIDED INJECTION HIP [...] David Olguin M.D. NS: NS Report ID: [id number] Reading Location: [id number] Procedure Note David Olguin MD - 03/26/2024 [...] David Olguin M.D. NS: NS Report ID: [id number] Reading Location: [place] [address] Arturo Powers MD IMG FLUOROSCOPY PROCEDU RES [...] Most Recently Relevant to Health Maintenance Insurance [employer] OPEN ACCESS [email or web address] OPEN ACCESS [email or web address] OPEN ACCESS [employer] OPEN ACCESS Advance Directives For more information, please contact: [phone] * Full Code (Latest Code Status on File) Date Activated Date Inactivated Comments 09/06/2018 1:32 PM 09/07/2018 4:32 PM * Full Code Date Activated Date Inactivated Comments 01/04/2018 2:58 PM 01/05/2018 2:32 PM Care Teams Buggy Driver Relationship Specialty Start Date End Date Shelley Garibay NP [address] [address] PCP - General Family Medicine 07/27/23
--- OUTSIDE RECORDS SUMMARY | 2024-05-23 17:15 | XMS_ITS | Clinical Summary ---
Author Organization [email or web address] Address [address] [facility] [place] [address] Care Team Providers Care Supervisor Carding Name Role Phone Juan Pablo Pathak MD Primary Care Provider [phone] Source Comments [facility],non-owned Affiliates and Associated Physician Practices is amultiple site organization consisting of ambulatory clinics and hospital sitesin [place], [place], [place] and [place]. This disclosure is being madepursuant to the Care Everywhere program and may not contain all information available regarding this patient. Last updated 17.[email or web address] Allergies No known active allergies Medications * Be aware that medications may not be up to date on this document. Alwaysverify current medications with the patient. Medication Sig Dispensed Refills Start Date End Date Status lisinopril (PRINIVIL; ZESTRIL) 10 MG tablet Take 10 mg by mouth once daily Active metoprolol succinate XL 24hr (TOPROL XL) 50 MG tablet Take 50 mg by mouth once daily Active zolpidem (AMBIEN) 5 MG tablet Take 10 mg by mouth Activ e DULoxetine (CYMBALTA) 60 MG capsule TAKE ONE CAPSULE BY MOUTH DAILY ALONG WITH 30 MG CAPSULE FOR A TOTAL DAILY DOSE OF 90 MG. 12/29/2019 Active ALPRAZolam (XANAX) 0.25 MG tablet Take 1 tablet by mouth once daily as needed 04/17/2021 Active oxyCODONE-acetamino phen (Percocet) 5-325 MG tablet Take 1 (one) tablet by mouth every 6 hours as needed for Pain 12 tablet 02/01/2022 Active Additional Information Patient not taking.Reported on 02/15/2022 Active Problems Problem Noted Date Diagnosed Date History of kidney removal 03/01/2022 Renal mass, right 03/01/2022 Acquired renal cyst of right kidney 12/14/2021 Immunizations Name Administration Dates Next Due INFLUENZA VACCINE, QUADR. (F LUZONE; FLULAVAL; FLUARIX; AFLURIA QUADRIVALENT; 6MO+), 0.5 ML (IIV4) 01/22/2022,10/28/2019,01/05/2018 TDAP (7yrs+) 05/09/2008 Social History Tobacco Use Types Packs/Day Years Used Date Smoking Tobacco: Every Day Cigarettes Smokeless Tobacco: Never Tobacco Cessation:Ready to Q uit: Not Asked; Counseling Given: Not Answered Comments:2 cigarettes per day. Working to have quit by next week. Alcohol Use Standard Drinks/Week Comments Not Currently 0 (1 standard drink = 0.6 oz pur e alcohol) rare AUDIT-C Answer Date Recorded Q1: How often do you have a drink containing alc ohol? Monthly or less 01/21/2022 Q2: How many drinks containi ng alcohol do you have on a typical day when you are drinking? 1 or 2 01/21/2022 Q3: How often do you have si x or more drinks on one occasion? Never 01/21/2022 Hunger Vital Sign Answer Date Recorded Within the past 12 months, y ou worried that your food would run out before you got the money to buy more. Never true 01/23/20 22 Within the past 12 months, t he food you bought just didn't last and you didn't have money to get more. Never true 01/22/2022 Sex and Gender Information Value Date Recorded Sex Assigned at Not on file Gender Identity Not on file Sexual Orientation Not on file Last Filed Vital Signs Vital Sign Reading Time Taken Comments Blood Pressure 131/84 02/15/2022 10:53 AM SOUND TRUCK OPERATOR Pulse 88 02/15/2022 10:53 AM SOUND TRUCK OPERATOR Temperature 36.7 C (98 F) 02/15/2022 10:53 AM SOUND TRUCK OPERATOR Respiratory Rate 18 02/15/2022 10:5 3 AM SOUND TRUCK OPERATOR Oxygen Saturation 94% 02/15/2022 10: 53 AM SOUND TRUCK OPERATOR Inhaled Oxygen Concentration - - Weight 75.7 kg (166 lb 12.8 oz) 022 10:53 AM SOUND TRUCK OPERATOR Height 167.6 cm (5' 6 ) 02/15/2022 10:5 3 AM SOUND TRUCK OPERATOR Body Mass Index 26.92 02/15/2022 10:53 AM SOUND TRUCK OPERATOR Plan of Treatment Health Maintenance Due Date Last Done Comments COLOGUARD (AGES 45-75) - COLON CA SCREENING 1973 COLON MONITORING 1973 COLONOSCOPY - COLON CA SCREENING 1973 CT COLONOGRAPHY - COLON CA SCREENING 1973 Colorectal Cancer Screening 1973 FIT - COLON CA SCREENING 1973 FLEX SIG - COLON CA SCREENING 1973 LIPID TESTING 1973 PAP SMEAR 1973 HIV SCREENING 1988 HEPATITIS C SCREENING 09/22/1991 HEPATITIS B VACCINE (1 of 3 - 19+ 3-dose series) 1992 PNEUMOCOCCAL VACCINE 50+ (1 of 2 - PCV) 1992 PNEUMOCOCCAL VACCINE (1 of 2 - PCV) 1992 MAMMOGRAM 03/14/2017 03/14/2015, 03/13/2014 DTAP/TDAP/TD VACCINES (2 - Td or Tdap) 05/09/2018 05/09/2008 ZOSTER VACCINE (1 of 2) 09/27/2023 COVID-19 VACCINE (1 - season) 2023 INFLUENZA VACCINE (#1) 2023 2, 10/28/2019, 01/05/2018 DEPRESSION SCREENING 03/07/2024 SCREENING FOR DIABETES 01/22/2025 2, 01/07/2022, 03/29/2017, Additional history exists HIB VACCINE Aged Out No longer eligi ble based on patient's age to complete this topic HPV VACCINE Aged Out No longer eligi ble based on patient's age to complete this topic MENINGOCOCCAL (Group B) VACCINE SHARED DECISION-MAKING Aged Out No longer eligible based on patient's age to complete this topic MENINGOCOCCAL GROUPS A/C/Y/W VACCINE Aged Out No longer eligible based on patient's age to complete this topic Procedures Procedure Name Priority Date/Time Associated Diagnosis Comments BASIC METABOLIC PANEL (CALCIUM TOTAL) Routine 01/22/2022 2:00 AM SOUND TRUCK OPERATOR Acquired renal cyst of right kidney from Last 3 Months or Most Recently Relevant to Health Maintenance Results * (ABNORMAL) BASIC METABOLIC PANEL (CALCIUM TOTAL) (01/22/2022 2:00 AM SOUND TRUCK OPERATOR) BUN 16 7 - 26 mg/dL 01/22/2022 2:36 AM [facility] Creatinine 1.21(H) 0.56 - 0.96 mg/dL 01/22/2022 2:36 AM [facility] Sodium 143 136 - 145 mmol/L 01/22/2022 2:36 AM [facility] Potassium 4.0 3.5 - 4.5 mmol/L 01/22/2022 2:36 AM [facility] Chloride 109(H) 98 - 107 mmol/L 01/22/2022 2:36 AM [facility] CO2 25 22 - 29 mmol/L 01/22/2022 2:36 AM [facility] Glucose 122(H) 70 - 115 mg/dL 01/22/2022 2:36 AM [facility] Calcium 9.0 8.4 - 10.2 mg/dL 01/22/2022 2:36 AM [facility] Anion Gap 13 8 - 18 01/22/2022 2:36 AM [facility] BUN/Creatinine Ratio 13 7 - 23 01/22/2022 2:36 AM [facility] Osmolality Calculated 298 270 - 300 mOsm/kg 01/22/2022 2:36 AM [facility] eGFR by CKD-EPI 55(L) >=90 mL/min/1.7 3 m2 01/22/2022 2:36 AM [facility] Blood BLOOD SPECIMEN / Unknown Lab Venipuncture / Unknown 01/22/2022 2:00 AM SOUND TRUCK OPERATOR 01/22/2022 2:11 AM [facility] Luisito Vale MD LAB - CHEMISTRY ORDE RABLES [facility] [address] [place] [address], [facility] [phone] from Last 3 Months or Most Recently Relevant to Health Maintenance Advance Directives * Full Code (Latest Code Status on File) Date Activated Date Inactivated Comments 01/21/2022 1:28 PM 01/22/2022 7:47 PM Care Teams Supervisor Carding Relationship Specialty Start Date End Date Juan Pablo Pathak MD [address] [place] [address] PCP - General Internal Medicine 11/22/14
--- OUTSIDE RECORDS SUMMARY | 2024-05-23 17:15 | XMS_ITS | Encounter Summary ---
Author Organization [facility] Healthcare Address [address] [place] [address] Care Team Providers Care Surface Room Shop Optician Name Role Phone Debbie Hyatt MD Primary Care Provider Juan Pablo Pathak MD Primary Care Provider [phone] Shelley Garibay NP Primary Care Provider Reason for Referral * Diagnostic Imaging (Routine) - Closed Specialty Diagnoses / Procedures Referred By Contac t Referred To Contact Radiology Diagnoses Lung nodule Tobacco abuse Procedures CT Chest WO Contrast Yoan New MD Phone: tel: fax: [address] [address] Referral ID Status Reason Start Date Expiration Date Visits Re quested Visits Authorized [id number] Closed 12/05/2017 06/16/2019 1 1 * Diagnostic Imaging (Routine) - Closed Specialty Diagnoses / Procedures Referred By Contac t Referred To Contact Diagnoses Abdominal pain, right upper quadrant Other cholelithiasis without obstruction Procedures US Gallbladder Yoan New MD Phone: tel: fax: [address] [address] Referral ID Status Reason Start Date Expiration Date Visits Re quested Visits Authorized [id number] Closed 12/05/2017 06/16/2019 1 1 * Diagnostic Imaging (Routine) - Closed Specialty Diagnoses / Procedures Referred By Burt t Referred To Contact Diagnoses Renal cyst Procedures US Kidney Complete Yoan New MD Phone: tel: fax: [facility] [address] [facility] [place] [address] Referral ID Status Reason Start Date Expiration Date Visits Re quested Visits Authorized [id number] Closed 12/05/2017 06/16/2019 1 1 Encounter Details Date Type Department Care Team (Latest Contact Info) Description 12/05/2017 Community Orders [facility] EpicCare Link Yoan New MD [address] [place] [address] Renal cyst (Primary Dx); Abdominal pain, right upper quadrant; Other cholelithiasis without obstruction; Lung nodule; Tobacco abuse Social History Tobacco Use Types Packs/Day Years Used Date Smoking Tobacco: Never Assessed Alcohol Use Standard Drinks/Week Comments Yes 0 (1 standard drink = 0.6 oz pur e alcohol) Comments Unknown Sex and Gender Information Value Date Recorded Sex Assigned at Not on file Legal Sex Female 11:24 PM BATCH STILL OPERATOR Gender Identity Not on file Sexual Orientation Not on file documented as of this encounter Plan of Treatment Not on file documented as of this encounter Results * US Kidney Complete (12/14/2017 3:40 PM CDT) Anatomical Region Laterality Modality Kidney N/A Ultrasound 12/14/2017 3:55 PM CDT Impressions 12/14/2017 4:09 PM CDT 1. The complex cystic lesion in the interpolar zones/inferior pole of the right kidney without suspicious features has slightly decreased in size when compared to MRI dated 11/17/2015 following needle aspiration with benign pathology. 2. Simple renal cyst in the inferior pole of the left kidney. 3. No nephrolithiasis or hydronephrosis. Dictated by: Yogi Grimm Electronically signed by: Abdon Hyde M.D. Narrative 12/14/2017 4:09 PM CDT EXAMINATION: COMPLETE RENAL SONOGRAM HISTORY: 42-year-old female with past medical history of nephroptosis status-post nephropexy and complex cystic lesion in the right kidney status-post aspiration (02/2016) with benign cytology. COMPARISON: No prior sonograms available for comparison. Reference is made to MRI abdomen with and without contrast dated 11/17/2015. FINDINGS: Kidneys: The echogenicity of both kidneys is normal. The kidneys are normal in size. The right kidney measures 10.7 cm in length, and the left, 10.2 cm in length. No hydronephrosis visualized. No nephrolithiasis identified. An avascular, complex cystic lesion containing multiple thin septa is redemonstrated in the interpolar zone/inferior pole of the right kidney and measures 3.9 x 3.2 x 2.9 cm in craniocaudal, transverse, and AP dimensions, respectively. A well-circumscribed, anechoic lesion exhibiting posterior acoustic enhancement is demonstrated in the interpolar zone of the left kidney and measures 1.0 x 0.8 x 0.9 cm. Bladder: The urinary bladder is normal. Procedure Note Abdon Hyde MD - 12/14/2017 EXAMINATION: COMPLETE RENAL SONOGRAM HISTORY: 42-year-old female with past medical history of nephroptosis status-post nephropexy and complex cystic lesion in the right kidney status-post aspiration (02/2016) with benign cytology. COMPARISON: No prior sonograms available for comparison. Reference is made to MRI abdomen with and without contrast dated 11/17/2015. FINDINGS: Kidneys: The echogenicity of both kidneys is normal. The kidneys are normal in size. The right kidney measures 10.7 cm in length, and the left, 10.2 cm in length. No hydronephrosis visualized. No nephrolithiasis identified. An avascular, complex cystic lesion containing multiple thin septa is redemonstrated in the interpolar zone/inferior pole of the right kidney and measures 3.9 x 3.2 x 2.9 cm in craniocaudal, transverse, and AP dimensions, respectively. A well-circumscribed, anechoic lesion exhibiting posterior acoustic enhancement is demonstrated in the interpolar zone of the left kidney and measures 1.0 x 0.8 x 0.9 cm. Bladder: The urinary bladder is normal. IMPRESSION: 1. The complex cystic lesion in the interpolar zones/inferior pole of the right kidney without suspicious features has slightly decreased in size when compared to MRI dated 11/17/2015 following needle aspiration with benign pathology. 2. Simple renal cyst in the inferior pole of the left kidney. 3. No nephrolithiasis or hydronephrosis. Dictated by: Yogi Grimm Electronically signed by: Abdon Hyde M.D. us Yoan New MD IMG US PROCEDURES Final Result * US Gallbladder (12/14/2017 3:00 PM CDT) Anatomical Region Laterality Modality Abdomen N/A Ultrasound 12/14/2017 3:36 PM CDT Impressions 12/14/2017 3:36 PM CDT 1. Contracted gallbladder filled with stones. Otherwise normal examination. Electronically signed by: Abdon Hyde M.D. Narrative 12/14/2017 3:36 PM CDT EXAMINATION: LIMITED ABDOMINAL SONOGRAM HISTORY: Right abdominal pain. COMPARISON: Sonogram date 05/04/2015. FINDINGS: Liver: The liver is normal in size. The echotexture is normal. The echogenicity is normal. There is no surface nodularity. No focal solid lesions are visualized. Gallbladder: The gallbladder is contracted. On the prior examination the gallbladder was distended. There multiple stones within the gallbladder. There is no gallbladder wall thickening. Bile Duct: There is no intrahepatic bile duct dilatation. The common duct measures 6 mm, 5 mm, and 3 mm in the proximal, mid and distal segments respectively. Pancreas: The visualized portions of the head and body of the pancreas are normal. Procedure Note Abdon Hyde MD - 12/14/2017 EXAMINATION: LIMITED ABDOMINAL SONOGRAM HISTORY: Right abdominal pain. COMPARISON: Sonogram date 05/04/2015. FINDINGS: Liver: The liver is normal in size. The echotexture is normal. The echogenicity is normal. There is no surface nodularity. No focal solid lesions are visualized. Gallbladder: The gallbladder is contracted. On the prior examination the gallbladder was distended. There multiple stones within the gallbladder. There is no gallbladder wall thickening. Bile Duct: There is no intrahepatic bile duct dilatation. The common duct measures 6 mm, 5 mm, and 3 mm in the proximal, mid and distal segments respectively. Pancreas: The visualized portions of the head and body of the pancreas are normal. IMPRESSION: 1. Contracted gallbladder filled with stones. Otherwise normal examination. Electronically signed by: Abdon Hyde M.D. us Yoan New MD IMG US PROCEDURES Final Result * CT Chest WO Contrast (12/14/2017 1:56 PM CDT) Anatomical Region Laterality Modality Body N/A Computed Tomogra phy 12/14/2017 2:10 PM CDT Impressions 12/14/2017 2:10 PM CDT 1. No suspicious pulmonary nodules. Bilateral sub-5 mm triangular nodules most compatible with intrapulmonary lymph nodes. 2. Partially visualized complex right renal cystic mass. Electronically signed by: Derrick Stokes D.O. Narrative 12/14/2017 2:10 PM CDT EXAMINATION: Computed tomography of the chest without intravenous contrast HISTORY: Lung nodule TECHNIQUE: Transaxial computed tomographic images of the chest were obtained without intravenous contrast according to the standard low-dose protocol. COMPARISON: Partial comparison made to CT abdomen from 09/28/2013 FINDINGS: Heart size is normal. There is no pericardial effusion. The thoracic aorta is normal in caliber. The pulmonary arteries are not dilated. No axillary, supraclavicular, or mediastinal lymphadenopathy. Bilateral prepectoral breast implants appear intact. No suspicious pulmonary nodules or masses. Tiny triangular nodule within the lingula (series 3, image 162) corresponds with an accessory minor fissure and likely represent a small pulmonary lymph node. An additional 3 mm triangular nodule is present in the superior segment right lower lobe (series 3, image 169), again most compatible with a intrapulmonary lymph node. Tiny pleural reflection along the lateral left lower lobe (series 3, image 213). No airspace consolidation or pleural effusion. Partially visualized right renal cystic mass measures up to 2.9 cm in diameter. No acute osseous abnormality. Procedure Note Derrick Stokes DO - 12/14/2017 EXAMINATION: Computed tomography of the chest without intravenous contrast HISTORY: Lung nodule TECHNIQUE: Transaxial computed tomographic images of the chest were obtained without intravenous contrast according to the standard low-dose protocol. COMPARISON: Partial comparison made to CT abdomen from 09/28/2013 FINDINGS: Heart size is normal. There is no pericardial effusion. The thoracic aorta is normal in caliber. The pulmonary arteries are not dilated. No axillary, supraclavicular, or mediastinal lymphadenopathy. Bilateral prepectoral breast implants appear intact. No suspicious pulmonary nodules or masses. Tiny triangular nodule within the lingula (series 3, image 162) corresponds with an accessory minor fissure and likely represent a small pulmonary lymph node. An additional 3 mm triangular nodule is present in the superior segment right lower lobe (series 3, image 169), again most compatible with a intrapulmonary lymph node. Tiny pleural reflection along the lateral left lower lobe (series 3, image 213). No airspace consolidation or pleural effusion. Partially visualized right renal cystic mass measures up to 2.9 cm in diameter. No acute osseous abnormality. IMPRESSION: 1. No suspicious pulmonary nodules. Bilateral sub-5 mm triangular nodules most compatible with intrapulmonary lymph nodes. 2. Partially visualized complex right renal cystic mass. Electronically signed by: Derrick Stokes D.O. Yoan New MD IMG CT PROCEDURES Final Result documented in this encounter Visit Diagnoses Diagnosis Renal cyst- Primary Unspecified congenital cystic kidney disease Abdominal pain, right upper quadrant Other cholelithiasis without obstruction Lung nodule Other diseases of lung, not elsewhere classified Tobacco abuse Tobacco use disorder Renal cyst Unspecified congenital cystic kidney disease Abdominal pain, right upper quadrant Other cholelithiasis without obstruction Lung nodule Other diseases of lung, not elsewhere classified Tobacco abuse Tobacco use disorder documented in this encounter Care Teams Surface Room Shop Optician Relationship Specialty Start Date End Date Debbie Hyatt MD PCP - General 05/13/06 12/28/17 Juan Pablo Pathak MD [address] [facility] [address] [place] [address] PCP - General Internal Medicine 12/29/17 07/26/23 Shelley Garibay NP [address] [address] PCP - General Family Medicine 07/27/23 documented as of this encounter
== END 2024-05-23 16:18 | disposition home or self-care (01) ==
PROVIDERS: PCP Nurse Practitioner Family; Visit Provider Pain Medicine Interventional Pain Medicine
DX: G89.4 Chronic pain syndrome (principal); M05.79 Rheumatoid arthritis with rheumatoid factor of multiple sites without organ or systems involvement; M16.9 Osteoarthritis of hip, unspecified; M25.559 Pain in unspecified hip; M54.14 Radiculopathy, thoracic region; M54.16 Radiculopathy, lumbar region; M79.2 Neuralgia and neuritis, unspecified; Z13.89 Encounter for screening for other disorder; Z51.81 Encounter for therapeutic drug level monitoring
CPT/HCPCS: 72072; 72100

== ENCOUNTER 2024-07-14 08:28 | Outpatient (CLI) | payer OTHER, SELFPAY ==
--- NOTE | ~2024-07-14 | MR_ITS ---
MRI of the lumbar spine Clinical History: Radiculopathy Technique: Axial T2-weighted images, and sagittal T1-weighted, T2-weighted, and T2 fat-sat images wer e acquired. Findings: There is no fracture or subluxation of lumbar spine. Vertebral bodies maintain normal heigh t and alignment. No bone marrow signal reality seen. At L1-L2 and L2-L3, there is no disc bulge or herniation. There is mild facet joint hypertrophy. No s maria del carmen canal stenosis or neural foraminal narrowing at these levels. At L3-L4, there is minimal disc bulge and moderate facet arthropathy. No central canal stenosis or ne ural foraminal narrowing. At L4-L5, there is no disc bulge or herniation. There is minimal facet hypertrophy. No spinal canal s tenosis or neural foraminal narrowing. L5-S1, there is mild degenerative disc narrowing with minimal disc bulge and minimal facet arthropath y. No central canal stenosis or neural foraminal narrowing. Paravertebral soft tissues are unremarkable. Impression: Minimal degenerative spondylosis, as above. Reviewed, dictated and finalized at location M. Impression: Minimal degenerative spondylosis, as above.
--- OUTSIDE RECORDS SUMMARY | 2024-07-14 08:52 | XMS_ITS | Clinical Summary ---
Author Organization [facility] YouMail Address [address] [place] [address] Care Team Providers Care Construction Superintendent Name Role Phone Juan Pablo Pathak MD Primary Care Provider [phone] Source Comments [facility],non-owned Affiliates and Associated Physician Practices is amultiple site organization consisting of ambulatory clinics and hospital sitesin [place], [place], [place] and [place]. This disclosure is being madepursuant to the Care Everywhere program and may not contain all information available regarding this patient. Last updated 17.[facility] [employer] Allergies No known active allergies Medications * Be aware that medications may not be up to date on this document. Alwaysverify current medications with the patient. lisinopril (PRINIVIL; ZESTRIL) 10 MG tablet Take 10 mg by mouth once daily Active metoprolol succinate XL 24hr (TOPROL XL) 50 MG tablet Take 50 mg by mouth once daily Active zolpidem (AMBIEN) 5 MG tablet Take 10 mg by mouth Active DULoxetine (CYMBALTA) 60 MG capsule TAKE ONE CAPSULE BY MOUTH DAILY ALONG WITH 30 MG CAPSULE FOR A TOTAL DAILY DOSE OF 90 MG. 0 Active ALPRAZolam (XANAX) 0.25 MG tablet Take 1 tablet by mouth once daily as needed 2 Active oxyCODONE-aceta minophen (Percocet) 5-325 MG tablet Take 1 (one) tablet by mouth every 6 hours as needed for Pain 12 tablet 2 Active Additional Information Patient not taking.Reported on 02/15/2022 Active Problems Problem Noted Date Diagnosed Date History of kidney removal 03/01/2022 Renal mass, right 03/01/2022 Acquired renal cyst of right kidney 12/14/2021 Immunizations Immunization Administration Dates Next Due INFLUENZA VACCINE, QUADR. [...] money to get more. Never true 01/22/2022 Comments No Sex and Gender Information Value Date Recorded Sex Assigned at Not on file Legal Sex Female 6:17 AM BELT LINE FEEDER Gender Identity Not on file Sexual Orientation Not on file Last Filed Vital Signs Vital Sign Reading Time Taken Comments Blood Pressure 131/84 02/15/2022 10:53 AM BELT LINE FEEDER Pulse 88 02/15/2022 10:53 AM BELT LINE FEEDER Temperature 36.7 C (98 F) 02/15/2022 10:53 AM BELT LINE FEEDER Respiratory Rate 18 02/15/2022 10:5 3 AM BELT LINE FEEDER Oxygen Saturation 94% 02/15/2022 10: 53 AM BELT LINE FEEDER Inhaled Oxygen Concentration - - Weight 75.7 kg (166 lb 12.8 oz) 022 10:53 AM BELT LINE FEEDER Height 167.6 cm (5' 6 ) 02/15/2022 10:5 3 AM BELT LINE FEEDER Body Mass Index 26.92 02/15/2022 10:53 AM BELT LINE FEEDER Plan of Treatment Health Maintenance Due Date [...] 50+ (1 of 2 - PCV) 1992 MAMMOGRAM 03/14/2017 03/14/2015, 03/13/2014 DTAP/TDAP/TD VACCINES (2 - Td or Tdap) 05/09/2018 05/09/2008 ZOSTER VACCINE (1 of 2) 09/27/2023 COVID-19 VACCINE (1 - season) 2023 DEPRESSION SCREENING 03/07/2024 INFLUENZA VACCINE (Season Ended) 2024 01/22/2022, 10/28/2019, 01/05/2018 SCREENING FOR DIABETES 01/22/2025 , 01/07/2022, 03/29/2017, Additional history exists HIB VACCINE [...] PANEL (CALCIUM TOTAL) Routine 01/22/2022 2:00 AM [facility] [place] Acquired renal cyst of right kidney from Last 3 Months or Most Recently Relevant to Health Maintenance Results * (ABNORMAL) BASIC METABOLIC PANEL (CALCIUM TOTAL) (01/22/2022 2:00 AM BELT LINE FEEDER) BUN 16 7 - 26 mg/dL 01/22/2022 2:36 AM [facility] Creatinine 1.21(H) 0.56 - 0.96 mg/dL 01/22/2022 2:36 AM [facility] Sodium 143 136 - 145 mmol/L 01/22/2022 2:36 AM [facility] Potassium 4.0 3.5 - 4.5 mmol/L 01/22/2022 2:36 AM [facility] Chloride 109(H) 98 - 107 mmol/L 01/22/2022 2:36 AM [facility] CO2 25 22 - 29 mmol/L 01/22/2022 2:36 AM [facility] Glucose 122(H) 70 - 115 mg/dL 01/22/2022 2:36 AM [facility] Calcium 9.0 8.4 - 10.2 mg/dL 01/22/2022 2:36 AM [facility] Anion Gap 13 8 - 18 01/22/2022 2:36 AM [facility] BUN/Creatinine Ratio 13 7 - 23 01/22/2022 2:36 AM [facility] Osmolality Calculated 298 270 - 300 mOsm/kg 01/22/2022 2:36 AM [facility] eGFR by CKD-EPI 55(L) >=90 mL/min/1.7 3 m2 01/22/2022 2:36 AM [facility] Blood BLOOD SPECIMEN / Unknown Lab Venipuncture / Unknown 01/22/2022 2:00 AM BELT LINE FEEDER 01/22/2022 2:11 AM [facility] [place] us Luisito Vale MD LAB - CHEMISTRY ORDERABLES F inal Result [facility] [address] [place] [address], [facility] [phone] from Last 3 Months or Most Recently Relevant to Health Maintenance Insurance CIGNA CIGNA Advance Directives * Full Code (Latest Code Status on File) Date Activated Date Inactivated Comments 01/21/2022 1:28 PM 01/22/2022 7:47 PM Care Teams Construction Superintendent Relationship Specialty Start Date End Date Juan Pablo Pathak MD [address] [place] [id number] PCP - General Internal Medicine 11/22/14
--- OUTSIDE RECORDS SUMMARY | 2024-07-14 08:52 | XMS_ITS | Clinical Summary ---
Author Organization [facility] Address [address] [place] [address] Care Team Providers Care Director Environmental Name Role Phone Shelley Garibay NP Primary Care Provider [phone] Allergies No known active allergies Medications lisinopril [...] CR) 12.5 mg CR tablet 07/06/2023 Active amoxicillin (AMOXIL) 875 mg tablet 06/20/2024 Active amoxicillin-clav ulanate (AUGMENTIN) 875-125 mg per tablet 05/23/2024 Active EnbreL SureClick 50 mg/mL (1 mL) pen injector 07/04/2024 Active methocarbamoL (ROBAXIN) 500 mg tablet 07/03/2024 Active montelukast (SINGULAIR) 10 mg tablet 05/13/2024 Active pramipexole (MIRAPEX) 0.125 mg tablet 06/16/2024 Active testosterone, bulk, powder 0 05/11/2024 Active Hospital, Clinic, or Other Facility Administered Medication Ordered Dose Route Frequency Start Date End Date Status triamcinolone (KENALOG) 40 mg/mL injection 40 mgIndications:Psoas tendonitis of right side 40 mg One-Time Injection 07/11/2024 07/11/2024 Ended Active Problems Problem Noted Date Diagnosed Date Tobacco abuse 01/02/2018 Depression 01/02/2018 Hypertension 11/08/2012 Mitral valve prolapse 05/13/2006 Overview (06/11/2016): MVP Resolved Problems Problem Noted Date Diagnosed Date Resolved Date Hematemesis 09/06/2018 09/07/2018 Hematemesis with nausea 09/06/2018 07/0 06/2018 Overview (09/06/2018): Added automatically from request for surgery [id number] Other dysphagia 09/06/2018 09/07/2018 Hyponatremia 09/06/2018 09/07/2018 Migraines 01/02/2018 09/07/2018 Calculus of gallbladder with out cholecystitis without obstruction 12/29/2017 02/06/2018 Overview (12/29/2017): Added automatically from request for surgery [id number] Chronic pain 11/11/2012 01/02/2018 Thoracic neuritis 11/11/2012 01/02/2018 Costochondritis 11/11/2012 01/02/2018 Mitral valve disease 11/08/2012 018 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 Migraine 05/13/2006 01/02/2018 Overview (06/11/2016): MIGRNE UNSP WO NTRC MGRN Encounters Date Type Department Care Team Description 07/11/2024 1:40 PM CDT Procedure visit [facility] [address] [place] [address] Floor [address] [place] [phone] Abdon Nguyen MD Psoas tendonitis of right side (Primary Dx); Right hip pain 07/11/2024 1:20 PM CDT Ancillary Procedure [facility] [address] [place] [address] Floor [address] [place] [phone] Psoas tendonitis of right side 07/11/2024 1:00 PM CDT Office Visit [facility] [address] [place] [address] Floor [address] [place] [phone] Jesus Alberto Palomo MD Arrived 06/26/2024 10:00 AM CDT Office Visit 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 Not on file Not [...] 05/09/2008 Zoster Vaccine (1 of 2) 09/27/2023 Breast Cancer Screening-Mammogram 09/27/2024 09/28/2023, 07/14/2020, 03/24/2018, Additional history exists Influenza Vaccine (Season Ended) 2024 01/22/2022, 10/28/2019, 01/05/2018, Additional history exists Pneumococcal vaccine <65 Aged Out No longer eligible based on patient's age to complete this topic Procedures Procedure Name Priority Date/Time Associated Diagnosis Comments CHG US GUIDANCE NEEDLE PLACEMENT IMG S&I Routine 07/11/2024 1:40 PM CDT Psoas tendonitis of right side ME INJECTION 1 TENDON SHEATH/LIGAMENT APONEUROSIS Routine 07/11/2024 1:40 PM CDT Psoas tendonitis of right side POCUS INJ SINGLE TENDON SHEATH/LIGAMENT Schedule Routine, Read Routine (OP Routine) 07/11/2024 1:17 PM CDT Psoas tendonitis of right side DIAGNOSTIC MAMMOGRAM BILATERAL W AARON W IMPLANTS Schedule Routine, Read Routine (OP Routine) 09/28/2023 10:40 AM CDT Mass of right breast, unspecified quadrant Mastodynia from Last 3 Months or Most Recently Relevant to Health Maintenance Results * ME INJECTION 1 TENDON SHEATH/LIGAMENT APONEUROSIS, CHG US GUIDANCE NEEDLE PLACEMENT IMG S&I (07/11/2024 1:40 PM CDT) Narrative Abdon Nguyen MD - 07/11/2024 1:40 PM CDT Abdon Nguyen MD 07/11/2024 1:53 PM Iliopsoas tendon injection Performed by: Abdon Nguyen MD Authorized by: Abdon Nguyen MD Iliopsoas Tendon Injection: Consent Given by: Patient Site marked: the procedure site was marked Timeout: prior to procedure the correct patient, procedure, and site was verified Verbal consent obtained?: Yes Supporting Documentation: Indications: Diagnostic and pain Procedure Details: Site: Right Iliopsoas Tendon Patient position: Supine Needle Size: 22 G Ultrasound guidance: Yes Injection with ultrasound guidance. The iliopsoas tendon was identified in the anterior hip using the ultrasound. The area was cleaned and prepped in sterile fashion. Sterile ultrasound probe cover and sterile ultrasound gel were used. Ultrasound approach: The needle was advanced under ultrasound guidance using an In-plane approach into the iliopsoas tendon. Ultrasound guidance used for: Pre-procedure marking and real-time guidance Sterile ultrasound techniques: Sterile gel and sterile probe covers were used Approach: Anterior Medications: 40 mg triamcinolone 40 mg/mL Patient tolerance: Patient tolerated the procedure well with no immediate complications Abdon Nguyen MD IN CLINIC/BEDSIDE OR DERABLES Final Result * POCUS INJ SINGLE TENDON SHEATH/LIGAMENT (07/11/2024 1:17 PM CDT) Narrative [facility] - 07/11/2024 1:17 PM CDT This procedure was performed and interpreted by the provider. Please refer to the provider's procedure/OR operative note for results. Abdon Nguyen MD POCUS ORDERABLES Fin al Result [facility] * Diagnostic Mammogram Bilateral W Aaron W Implants (09/28/2023 10:40 AM CDT) Anatomical [...] patient at the time of the study. us Shelley Garibay NP IMG MAMMO PROCEDURES Final Resu lt from Last 3 Months or Most Recently Relevant to Health Maintenance Insurance [employer] OPEN ACCESS [employer] OPEN ACCESS OPEN ACCESS OPEN ACCESS Advance Directives For more information, please contact: [phone] * Full Code (Latest Code Status on File) Date Activated Date Inactivated Comments 09/06/2018 1:32 PM 09/07/2018 4:32 PM * Full Code Date Activated Date Inactivated Comments 01/04/2018 2:58 PM 01/05/2018 2:32 PM Care Teams Director Environmental Relationship Specialty Start Date End Date Shelley Garibay NP [address] [address] PCP - General Family Medicine 07/27/23
--- OUTSIDE RECORDS SUMMARY | 2024-07-14 08:52 | XMS_ITS | Encounter Summary ---
Author Organization [facility] Healthcare Address [address] [place] [address] Care Team Providers Care Information Systems Consultant Name Role Phone Debbie Hyatt MD Primary Care Provider Juan Pablo Pathak MD Primary Care Provider Shelley Garibay NP Primary Care Provider [phone] Reason for Referral * Diagnostic Imaging (Routine) - Closed Specialty Diagnoses / Procedures Referred By Contac t Referred To Contact Radiology Diagnoses Lung nodule Tobacco abuse Procedures CT Chest WO Contrast Yoan New MD Phone: tel: fax: [address] [address] Referral ID Status Reason Start Date Expiration Date Visits Re quested Visits Authorized [id number] Closed 12/05/2017 06/16/2019 1 1 * Diagnostic Imaging (Routine) - Closed Specialty Diagnoses / Procedures Referred By Contac t Referred To Contact Diagnoses Abdominal pain, right upper quadrant Other cholelithiasis without obstruction Procedures US Gallbladder Yoan New MD Phone: tel: fax: [address] [phone] Referral ID Status Reason Start Date Expiration Date Visits Re quested Visits Authorized [id number] Closed 12/05/2017 06/16/2019 1 1 * Diagnostic Imaging (Routine) - Closed Specialty Diagnoses / Procedures Referred By Burt t Referred To Contact Diagnoses Renal cyst Procedures US Kidney Complete Yoan New MD Phone: tel: fax: [facility] [address] [facility] [place] [address] Referral ID Status Reason Start Date Expiration Date Visits Re quested Visits Authorized [id number] Closed 12/05/2017 06/16/2019 1 1 Encounter Details Date Type Department Care Team (Latest Contact Info) Description 12/05/2017 Community Orders [facility] EpicCare Link Yoan New MD [address] [place] [address] Renal cyst (Primary Dx); Abdominal pain, right [...] on file Legal 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
--- OUTSIDE RECORDS SUMMARY | 2024-07-14 08:52 | XMS_ITS | Referral Summary ---
Author Organization [facility] Address [address] [place] [address] Care Team Providers Care Junior Manufacturing Engineer Name Role Phone Shelley Garibay NP Primary Care Provider Encounters Date Type Department Care Team Description 07/11/2024 1:20 PM CDT Ancillary Procedure [facility] [id number] [place] [address] Floor [address] [place] [phone] Psoas tendonitis of right side 07/11/2024 1:00 PM CDT Office Visit [facility] [address] [place] [address] Floor [address] [place] [phone] Jesus Alberto Palomo MD Arrived 07/11/2024 1:40 PM CDT Procedure visit [facility] [address] [place] [address] Floor [address] [place] [phone] Abdon Nguyen MD Psoas tendonitis of right side (Primary Dx); Right hip pain 06/26/2024 10:00 AM CDT Office Visit [facility] Orthopaedic Surgery [address] [place] [address] Medical Office Building [address] [place] [address] Jesus Alberto Palomo MD Right hip pain from Last 3 Months Allergies No known [...] (09/06/2018): Added automatically from request for surgery [id number] Other dysphagia 09/06/2018 09/07/2018 Hyponatremia 09/06/2018 09/07/2018 Migraines 01/02/2018 09/07/2018 Calculus of gallbladder with out cholecystitis without obstruction 12/29/2017 02/06/2018 Overview (12/29/2017): Added automatically from request for surgery [id number] Chronic pain 11/11/2012 01/02/2018 Thoracic neuritis 11/11/2012 [...] on file Legal Sex Female 11:24 PM TACK COVERER Gender Identity Not on file Sexual Orientation Not on file 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 Not [...] PM CDT Psoas tendonitis of right side [place] INJECTION 1 TENDON SHEATH/LIGAMENT APONEUROSIS Routine 07/11/2024 [...] Recently Relevant to Health Maintenance Results * [place] INJECTION 1 TENDON SHEATH/LIGAMENT APONEUROSIS, CHG US [...] Nguyen MD POCUS ORDERABLES Fin al Result Performing Organization Address City/State/[facility] Co de Phone Number [email or web address] * Diagnostic Mammogram Bilateral W Aaron [...] Most Recently Relevant to Health Maintenance Insurance [employer] OPEN ACCESS [employer] [id number] Advance Directives For more information, please contact: [phone] * Full Code (Latest Code Status on File) Date Activated Date Inactivated Comments 09/06/2018 1:32 PM 09/07/2018 4:32 PM * Full Code Date Activated Date Inactivated Comments 01/04/2018 2:58 PM 01/05/2018 2:32 PM Care Teams Junior Manufacturing Engineer Relationship Specialty Start Date End Date Shelley Garibay NP [facility] [address] [address] PCP - General Family Medicine 07/27/23
== END 2024-07-14 08:29 | disposition home or self-care (01) ==
PROVIDERS: PCP Nurse Practitioner Family; Visit Provider Pain Medicine Interventional Pain Medicine
DX: M47.896 Other spondylosis, lumbar region (principal)
CPT/HCPCS: 72148

== ENCOUNTER 2024-10-18 08:49 | Outpatient (CLI) | payer OTHER, SELFPAY ==
--- NOTE | ~2024-10-18 | US_ITS ---
US renal BI 10/18/2024 09:07 Procedure: Realtime transabdominal ultrasound of the kidneys and bladder. Indication: Chronic kidney disease. Hypertension. Solitary left kidney. Comparison: MRI abdomen dated 08/18/2018 Findings: Right kidney is surgically absent. Left renal echotexture is normal without hydronephrosis, contour deforming mass or renal stone. Left kidney measures 10.7 cm. Bladder is not well distended, although unremarkable. Impression: 1: Unremarkable renal ultrasound status post right nephrectomy. Reviewed, dictated and finalized at location A. Impression: 1: Unremarkable renal ultrasound status post right nephrectomy.
== END 2024-10-18 08:50 | disposition home or self-care (01) ==
LOC: MICIMG 08:49
PROVIDERS: PCP Nurse Practitioner Family; Visit Provider Internal Medicine Nephrology
DX: I12.9 Hypertensive chronic kidney disease with stage 1 through stage 4 chronic kidney disease, or unspecified chronic kidney disease (principal); N18.31 Chronic kidney disease, stage 3a
CPT/HCPCS: 76775

== ENCOUNTER 2025-01-22 14:11 | Outpatient (CLI) | payer OTHER, SELFPAY ==
--- NOTE | ~2025-01-22 | XR_ITS ---
EXAMINATION: XR shoulder LT min 2V, 01/22/2025 14:18 DISPLAY DESIGNER OUTSIDE HISTORY: Pain in unspecified shoulder COMPARISON: No comparisons available. Findings: No acute fracture or malalignment. No significant degenerative changes. Soft tissues unremarkable. Impression: No acute fracture or malalignment. Reviewed, dictated and finalized at location P. LAY DESIGNER OUTSIDE Impression: No acute fracture or malalignment.
--- NOTE | ~2025-01-22 | XR_ITS ---
XR thoracic spine 2V Indication: Radiculopathy, thoracic Comparison: None Findings: The vertebral heights are intact. No fracture or subluxation. The disc heights are intact. Soft tissues unremarkable Impression: No acute abnormality. Reviewed, dictated and finalized at location P. SANDER SETTER Impression: No acute abnormality.
--- NOTE | ~2025-01-22 | XR_ITS ---
XR lumbar spine 2-3V Indication: Radiculopathy, lumbar Comparison: None Findings: Mild dextroconvex scoliosis. No fracture or subluxation. Moderate to severe loss of disc height T12-L1. Soft tissues unremarkable Impression: No acute abnormality. Reviewed, dictated and finalized at location P. AL AND POLITICAL STUDIES PROFESSOR Impression: No acute abnormality.
--- NOTE | ~2025-01-22 | XR_ITS ---
XR_CERV2-3V_CR Indication: Radiculopathy, cervical Comparison: None Findings: The vertebral heights are intact. No fracture or subluxation. Moderate loss of disc height at C5-C6. Soft tissues unremarkable Impression: No acute abnormality. Reviewed, dictated and finalized at location P. SPACE MECHANIC Impression: No acute abnormality.
--- NOTE | ~2025-01-22 | XR_ITS ---
EXAMINATION: XR shoulder RT min 2V, 01/22/2025 14:18 CURBSTONE SETTER HISTORY: Pain in unspecified shoulder COMPARISON: No comparisons available. Findings: No acute fracture or malalignment. No significant degenerative changes. Soft tissues unremarkable. Impression: No acute fracture or malalignment. Reviewed, dictated and finalized at location P. STONE SETTER Impression: No acute fracture or malalignment.
== END 2025-01-22 14:12 | disposition home or self-care (01) ==
PROVIDERS: PCP Nurse Practitioner Family; Visit Provider Pain Medicine Interventional Pain Medicine
DX: M41.86 Other forms of scoliosis, lumbar region (principal); R29.890 Loss of height; M25.512 Pain in left shoulder; M25.511 Pain in right shoulder; M54.12 Radiculopathy, cervical region; M54.14 Radiculopathy, thoracic region
CPT/HCPCS: 72040; 72070; 72100; 73030